=== PATIENT | male | born 1995 | race Caucasian/White ===

== ENCOUNTER 2021-11-05 19:47 | Emergency (ER) | payer SELFPAY ==
[~2021-11-05] VITALS: Ht 188 cm; Wt 101.4 kg
[2021-11-05 20:02] VITALS: BP 123/46
--- NOTE | 2021-11-05 20:08 | NUR ---
pt sent to lobby.
--- NOTE | 2021-11-05 21:59 | NUR ---
alcon called 2xs no answer.
== END 2021-11-05 21:59 | disposition left against medical advice (07) ==
LOC: MED 19:47
DX: M25.571 Pain in right ankle and joints of right foot (principal); Z53.21 Procedure and treatment not carried out due to patient leaving prior to being seen by health care provider; X58.XXXA Exposure to other specified factors, initial encounter; Y93.23 Activity, snow (alpine) (downhill) skiing, snowboarding, sledding, tobogganing and snow tubing; Y92.89 Other specified places as the place of occurrence of the external cause; Y99.8 Other external cause status